=== PATIENT | female | born 1995 | race Caucasian/White ===

== ENCOUNTER → 2022-10-28 14:12 | Outpatient (CLI) | payer BC, SELFPAY ==
--- NOTE | 2022-10-28 | DI.US.S_ITS ---
PROCEDURE: US OB >= 14 WEEKS FETUS INDICATIONS: ANATOMY SCAN OUTSIDE/PRIOR DATING DATA: Last menstrual period (LMP): 05/22/2022. LMP-based estimated date of delivery (TWYLA): 02/26/2023. First dating scan (date and location): 10/28/2022, [facility]. Estimated date of delivery (TWYLA) from first dating scan: 02/27/2023. TECHNIQUE: Real-time scanning was performed of the fetus, with image documentation and biometric measurements. Endovaginal scanning: Not performed COMPARISON: None. FINDINGS: General: A single living intrauterine gestation is present. Presentation: Vertex. Placenta: Placental position is anterior , without previa. Amniotic fluid index: 18.3 cm, normal range is 5-24 cm. Single deepest vertical pocket is 6.5 cm. heart rate: 133 beats per minute. Maternal cervical canal: 5.5 cm long. Normal lower limit is 2.5 cm. biometrics: Biparietal diameter: 5.3 centimeters, 22 weeks 0 days Head circumference: 19.5 centimeters, 21 weeks 5 days Abdominal circumference: 19.2 centimeters, 23 weeks 6 days Femur length: 4.0 centimeters, 22 weeks 5 days estimated gestational age: 22 weeks 5 days Composite gestational age from present scan: 22 weeks 4 days Estimated weight and percentile: 570 grams, 67th percentile Anatomic survey: Neuro: Ventricles are non-dilated at less than 10 mm. Cisterna magna is normal at 3-11 mm. Cerebellum is normal in size and morphology. Nuchal skin fold: Normal at less than 6 mm between 14-21 weeks gestational age. Face: Nose and lips, facial profile are normal. Spine: No evidence for spina bifida. Heart: 4-chambered heart is present, with normal ventricular outflow tracts. Diaphragm: Diaphragm is intact. Stomach: Left-sided stomach is present. Kidneys: No hydronephrosis. Normal is less than 5 mm in 2nd trimester, less than 7 mm in 3rd trimester. Cord: 3-vessel cord has orthotopic insertion. Bladder: Normal in size. Extremities: All 4 extremities identified. IMPRESSION: 1. Single living intrauterine in vertex presentation. 2. Normal 2nd trimester anatomy survey. No anomalies detected at this time. We strive to produce accurate, complete, and clear reports of imaging services. To assist us in improving patient care, this report was composed using standard report templates and voice recognition software. Therefore, it may contain abnormal punctuation, insertions and/or omissions. Occasional wrong-word or sound-alike substitutions may occur. Though we review the report and make efforts to correct it, we do recommend that the report be read carefully in proper context to recognize any text inaccuracies. Dictated by: Danny Beckford M.D. on 10/28/2022 at 17:51 Approved by: Danny Beckford M.D. on 10/28/2022 at 17:57
== END ==
PROVIDERS: PCP Family Medicine; Referring Provider Advanced Practice Midwife; Visit Provider Advanced Practice Midwife
DX: Z34.92 Encounter for supervision of normal pregnancy, unspecified, second trimester (principal); Z3A.22 22 weeks gestation of pregnancy
CPT/HCPCS: 76811

== ENCOUNTER → 2022-11-08 09:53 | Outpatient (CLI) | payer BC, SELFPAY ==
[2022-11-08 11:27] LABS: Hematocrit 32.2 % (36-46); Mean Corpuscular HGB Conc 34.3 % (30-36); Mean Corpuscular Hemoglobin 31.5 PG (26-34); Mean Corpuscular Volume 92.1 fL (80-100); Platelet Count 189 X10^3/uL (150-400); Red Cell Distribution Width 13.5 % (11.6-14.8); White Blood Cell Count 11.3 X10^3/uL (4.5-11.0)
[2022-11-08 11:51] LABS: Glucose Fasting 75 mg/dL (70-100)
[2022-11-08 12:05] LABS: Glucose 1 Hour 106 mg/dL (70-170)
[2022-11-08 12:25] LABS: Glucose Tol Interpretation INTERPRETATION
[2022-11-08 14:10] LABS: Glucose 2 Hour 84 mg/dL (70-140)
== END ==
PROVIDERS: PCP Family Medicine; Referring Provider Advanced Practice Midwife; Visit Provider Advanced Practice Midwife
DX: Z34.90 Encounter for supervision of normal pregnancy, unspecified, unspecified trimester (principal); Z13.1 Encounter for screening for diabetes mellitus; Z3A.23 23 weeks gestation of pregnancy
CPT/HCPCS: 36415; 82951; 82952; 85027

== ENCOUNTER 2023-03-05 00:53 | Inpatient (IN) | payer OTHER, SELFPAY ==
--- NOTE | 2023-03-05 01:00 | P.HPOB_ITS ---
OB HPI Date/Time Date of admission: 03/05/23 Date Patient Seen: 03/05/23 Time Patient Seen: 01:01 History of Present Condition Chief complaint: LABOR : 2 Para: 0 Estimated Date of Delivery: 02/26/23 Narrative: Cheri Camp is a 27 year old female at 41w0d by sure LMP here for evaluation of labor. Has had good, uncomplicated care with CNMs. Contractions started this evening and steadily progressed in intensity and frequency. She arrived at the hospital breathing and moaning through contractions every two minutes. No vaginal bleeding and leaking of fluid with no concern for decreased movement. She is well supported by her mom and her at the bedside. Uncomplicated are with CNMs initiated at 15wks. Desires low intervention . Supported by partner, Kuldip, and her aunt. History of Present care: good care, initiated at week # (15), number of visits (11) and pounds weight gain (40) Dating criteria: LMP confirmed by 2nd trimester US Ultrasounds: normal mid trimester US Obstetrical complications: none Medical complications: none Preadmission Labs Blood type: A (+) positive -: Antibody screen: negative, Cystic fibrosis screen: negative, GBS status: negative, HBsAG: negative, HIV: negative and RPR/VDLR: negative -: Chlamydia screen: not detected and Gonorrhea screen: not detected -: Rubella: not immune and Varicella: immune HCT: 35.3 PAP: Normal Cell-free DNA: negative Narrative: 2hr gtt: 75, 106, 84 Prior (ies) History: SAB in 2016 - D&C Evaluation Evaluation Baseline heart rate: 145 Contraction Frequency (minutes): 2 Uterine Contraction Intensity: Strong/Firm Dilation (cm): 7 Effacement (%): 90 Dilation: >/=5 cm Effacement: >/=80% station: -2 Position of cervix: mid Consistency: soft Vega score: 10 Comments: FHTs reassuring by doppler [facility] Medical History (Updated 02/05/21 @ 21:42 by Codi Ferris) Eye abnormality Family history of due to heart problem at 50 years of age or younger Surgical History (Updated 02/05/21 @ 21:42 by Codi Ferris) Anesthesia History of dilatation and curettage (~2015) S/P lumpectomy, right breast (~2014) Family History (Updated 02/05/21 @ 21:42 by Codi Ferris) Father Crohn's disease Mother Heart murmur Social History Smoking Status: Never smoker Meds Home Medications and Allergies Allergies Allergy/AdvReac Type Severity Reaction Status Date / Time No Known Drug Allergies Allergy Verified 01/09/21 14:23 Review of Systems Review of Systems ROS: Yes All systems reviewed with the patient and are negative except as oth erwise documented OB Exam Vital signs Blood Pressure: 133/95 Pulse Rate: 105 Temperature: 36.4 F Resp Effort & Inspection: normal respiratory effort and able to speak in complete sentences Auscultation: clear to auscultation bilaterally Cardio Rate: regular rate Rhythm: regular rhythm Heart Sounds: S1 normal and S2 normal Presentation: vertex Objective Labs 03/05/23 01:15 Assessment and Plan Assessment and Plan Assessment and Plan narrative: A: Term nullipara Active labor elevated BP without diagnosis of hypertension Rubella NON-immune GBS prophylaxis NOT indicated FHTs reassuring by intermittent auscultation P: Admit for labor, routine admission orders Repeat BP within 1 hour, if elevated, will order preeclampsia panel Continuous labor support Intermittent auscultation Reviewed plan Expectant management of labor
[2023-03-05 01:38] LABS: Add Manual Diff / Slide Review NO; Basophils Absolute Auto 100 /uL (0-100); Basophils Percent Auto 0.4 % (0-2); Eosinophils Absolute Auto 0 /uL (0-450); Eosinophils Percent Auto 0.1 % (2-4); Hematocrit 38.7 % (36-46); Hemoglobin 13.1 g/dL (12.0-16.0); Lymphocytes Absolute Auto 1300 /uL (1100-4500); Lymphocytes Percent Auto 6.7 % (25-40); Mean Corpuscular HGB Conc 33.9 % (30-36); Mean Corpuscular Hemoglobin 30.3 PG (26-34); Mean Corpuscular Volume 89.4 fL (80-100); Monocytes Absolute Auto 1000 /uL (0-900); Monocytes Percent Auto 4.8 % (3-14); Neutrophils Absolute Auto 17300 /uL (1500-7000); Platelet Count 152 X10^3/uL (150-400); Red Blood Cell Count 4.33 X10^6/uL (4.0-5.2); Red Cell Distribution Width 12.9 % (11.6-14.8); White Blood Cell Count 19.7 X10^3/uL (4.5-11.0)
[2023-03-05] MEDS: ONDANSETRON 4 MG/2 ML INJ IV (01:48)
[2023-03-05 02:01] VITALS: BP 133/95; PULSE 105; TEMP 2.4; TEMP 36.4
[2023-03-05] MEDS: LACTATED RINGERS 1,000 ML 999 ML IV ×2 (02:40→03:32)
--- NOTE | 2023-03-05 03:00 | PM.AN.REGBLK ---
Regional Block Pre-procedure Procedure: Continuous Lumbar Epidural for L&D Attending OB provider: Alida Carmen PMH/ROS narrative: term labor, no complications, no significant PMH. ASA Class: II Labs: Hct 38.7 % (36-46) 03/05/23 01:15 Plt Count 152 X10^3/uL (150-400) 03/05/23 01:15 Medications: Current Medications Generic Name Dose Route Start Last Admin Trade Name Freq PRN Reason Stop Dose Admin Calcium Carbonate 1,000 mg 03/05/23 00:58 Calcium Carbonate 500 Mg Tab PO Q4HR PRN Dyspepsia Carboprost Tromethamine 250 mcg 03/05/23 00:58 Carboprost 250 Mcg/Ml Ampul IM Q90M PRN Bleeding Fentanyl 100 mcg 03/05/23 00:58 Fentanyl 100 Mcg/2 Ml Inj IV Q1H PRN Pain, Severe (7-10) Oxytocin/Lactated Ringer's 30 unit in 500 mls @ 200 mls/hr 03/05/23 00:58 Oxytocin Premix IV CONT PRN Bleeding Protocol Tranexamic Acid 1,000 mg/ 100 mls @ 200 mls/hr 03/05/23 00:58 Sodium Chloride IV NOW PRN Bleeding Lactated Ringer's 1,000 mls @ 100 mls/hr 03/05/23 01:00 03/05/23 02:40 Lactated Ringers IV 999 mls/hr CONT JEREMIAS Administration Lidocaine HCl 20 ml 03/05/23 00:58 Lidocaine 1% 20 Ml INJ INTRA-OP PRN Post Delivery Methylergonovine Maleate 0.2 mg 03/05/23 00:58 Methylergonovine 0.2 Mg Tablet PO Q6HR PRN Heavy Bleeding Methylergonovine Maleate 0.2 mg 03/05/23 00:58 Methylergonovine 0.2 Mg/Ml Vial IM NOW PRN Bleeding Misoprostol 800 mcg 03/05/23 00:58 Misoprostol 200 Mcg Tablet NE NOW PRN Bleeding Misoprostol 400 mcg 03/05/23 00:58 Misoprostol 200 Mcg Tablet SL NOW PRN Bleeding Naloxone HCl 0.2 mg 03/05/23 00:58 Naloxone 0.4 Mg/Ml Vial IV Q2MIN PRN Opiate Reversal Ondansetron HCl 4 mg 03/05/23 00:58 03/05/23 01:48 Ondansetron 4 Mg/2 Ml Inj IV 4 mg Q4HR PRN Administration Nausea And Vomiting Oxytocin 10 unit 03/05/23 00:58 Oxytocin 10 Unit/Ml Vial IM NOW PRN Bleeding Allergies: Allergies Allergy/AdvReac Type Severity Reaction Status Date / Time No Known Drug Allergies Allergy Verified 01/09/21 14:23 Procedure Insertion date: 03/05/23 Insertion time: 03:10 Prep/Local: betadine x3 and 1% lidocaine Interspace: L3-4 Patient position: sitting Needle: 18 gauge [employer] (CSE: 27g Pencan through [employer], clear CSF, 2.5mg MPF bupiv) Loss of resistance with: saline ROSELINE at (cm): 4 Catheter placed at SKIN (cm): 10 Catheter in SPACE (cm): 6 Insertion: No CSF, No Blood, No Paresthesia with insertion, No Paresthesia with injection and No Test dose reaction Initial Medications TEST DOSE time: 03:13 TEST DOSE: 1.5% lidocaine with epinephrine 1:200k (mL): 3 BOLUS DOSE time: 03:14 BOLUS DOSE (mL): 4 BOLUS DOSE med: other (lidocaine 1%) Infusion INFUSION: 0.125% bupivacaine and with fentanyl 2 mcg/mL Initial rate (mL/hr): 8 Subsequent interventions: PCEA at 8mL/h+4 bolus q15m prn VSS throughout placement. 11:15 6mL 2-chloroprocaine, pushing. Post-procedure Anesthesia time START: 03:05 Anesthesia time END: 11:18 Post-procedure Anesthesia Assessment: Yes CV function: HR/BP stable, Yes Resp function: RR/sat/airway adequate, Yes Post-op hydration adequate, Yes Pain control adequate, Yes Nausea & vomiting absent, Yes Temperature > 36 C, Yes Mental status appropriate and No Anesthesia complications
[2023-03-05] MEDS: FENT 2MCG/ML BUPIV 0.125% EPI 200 MCG/100 ML PLAST..BAG 6 MCG EPIDURAL ×2 (03:26→10:30)
--- NOTE | 2023-03-05 04:05 | PM.OBPNLAB ---
Date/Time Date Patient Seen: 03/05/23 Time Patient Seen: 03:45 Pain Control Pain control: epidural Comments: Patient requested nitrous oxide for pain relief. After utilizing NO2, the patient requested an epidural for more adequate pain relief. Edpidural was placed, patient is now completely comfortable, rating contraction pain 0/10. R:18/min BP:110/55 MAP: 79 P: 114bpm SpO2: 98% Temp: 36.4* Pelvic Exam Dilation (cm): 8 Effacement (%): 90 station: -2 Amniotic membrane status: Bulging Contractions Date/Time contractions began: 03/04/23 - early evening contractions began Contractions on admission: regular Contraction frequency (min): 2 Contraction duration (min): 1 Contraction pattern: Regular Contraction intensity: Strong/Firm Status status: Category l Heart Rate Baseline: 125 Monitor Accelerations: Present Monitor Decelerations: Variable Monitor Variability: Moderate Assessment and Plan Assessment: active labor Plan: continuous present management Comments: A: Term nulliparous Pain well managed with epidural Elevated WBC count without other signs of infection Cat I FHR P: Encourage rest Frequent position changes Watch for signs and symptoms of infection Anticipate continued progress of labor and NSVB Reassess in 4 hours or sooner if indicated
[2023-03-05 07:00] VITALS: BP 114/57; PULSE 66; RESP 16; TEMP 36.9
--- NOTE | 2023-03-05 07:58 | PM.OBPNLAB ---
Date/Time Date Patient Seen: 03/05/23 Time Patient Seen: 07:40 Pain Control Pain control: epidural Comments: Has been able to sleep comfortably for past 4 hours. Denies pressure. Some bloody show and possible leaking of fluid at last position change. BP: 99/54 MAP: 72 P: 76bpm SpO2: 95% RR: 16/min Temp: 35.7C Pelvic Exam Dilation (cm): 10 Effacement (%): 100 station: 0 Amniotic membrane status: Ruptured Comments: Blood show and clear fluid noted Contractions Contractions on admission: regular Monitor mode: External Contraction frequency (min): 4 Contraction duration (min): 2 Contraction pattern: Regular Contraction intensity: Strong/Firm Status status: Category l Heart Rate Baseline: 125 Monitor Accelerations: Present Monitor Decelerations: Absent Monitor Variability: Moderate Assessment and Plan Assessment: active labor Plan: continuous present management Comments: A: Term nulliparous Active labor Pain well managed with epidural SROM x<4hrs without signs of infection Cat I FHR P: Encouraged laboring down for one hour Reassess in one hour or sooner as indicated Anticipate second stage of labor soon
--- NOTE | 2023-03-05 11:52 | PM.OBPRVD ---
Labor & Delivery Delivery date: 03/05/23 Intrapartal Events: Extended Tachycardia, Acceleration and Deceleration Cervical ripening method: none Induction method: none Delivery monitor: external FHT and external uterine Route of delivery: L&D Laceration Description: Vaginal - 1st Degree Quantitative Blood Loss: 50 Anesthesia Type: Epidural Narrative: Cheri is a G2 now P1011 s/p NSVB at 41w0d. Second stage started at 0850 with good maternal effort and adequate pain relief with epidural, Cat I FHR. After one hour with multiple position changes, FHR was Cat II with tachycardia. SROM of clear fluid. Good progress was made, she coped well with support from , aunt, RN, CNM, and SNM. The epidural started to loose effectiveness and Cheri was able to feel her contractions as well as pain with decent, pushing became less effective. RT was alerted to attend the . Anesthesia was called to assess epidural effectiveness and give additional medication bolus. With pushing support and coaching Cheri delivered a vigorous baby girl SHAHRZAD, somersaulted through a loose nuchal cord, immediately placed on maternal abdomen for skin to skin and drying, APGARS 8/9. CNM, SNM and father hands on a , father lifted baby to maternal abdomen. Copious amounts of terminal meconium. RT support was not needed. Active management of the third stage of labor with pitocin per protocol. Cord was cut and clamped by FOB once cessation of pulsations. Assessed 1st degree vaginal laceration, hemostatically stable and well approximated with no indication for repair. Placenta was delivered Schultze, apparently intact, 3VC. Fundus immediately firm, at U. QBL 50mL. Cheri and her baby were stable, skin to skin with initiated, as we left the room. [place] Baby 1: Infant gender: Female Presentation: vertex Position: Right Occiput Anterior Placenta delivery description: Spontaneous Cord Vessel Description: 3 Vessels, Nuchal Cord and Loose score (1 min): 8 score (5 min): 9 weight: 4.735 kg Plan for aftercare: Routine care
[2023-03-05] MEDS: KETOROLAC 30 MG/ML VIAL IV (13:13)
[2023-03-05] MEDS: ACETAMINOPHEN 325 MG TABLET 650 MG PO ×2 (13:14→21:15)
[2023-03-05] MEDS: DERMOPLAST SPRAY 20% 60 ML 1 SPRAY TOP (13:14)
[2023-03-05] MEDS: IBUPROFEN 600 MG TABLET PO (21:14)
[2023-03-06] MEDS: ACETAMINOPHEN 325 MG TABLET 650 MG PO ×2 (04:25→10:24)
[2023-03-06] MEDS: IBUPROFEN 600 MG TABLET PO ×2 (04:25→10:26)
--- NOTE | 2023-03-06 08:35 | P.DS_ITS ---
Discharge Providers Provider Date of admission: 03/05/23 00:53 Discharge Date: 03/06/23 Primary care physician: Thompson Kimball DO Consults: 03/06/23 11:43 Consult to Supervisor [facility] Routine Comment: Discharge provider: Alida Carmen CNM Summary Hospital Course Date Patient Seen: 03/06/23 Time Patient Seen: 08:35 Diagnoses: O70.0 Hospital Course: PPD1: Stable s/p NSVB with 1st degree vaginal laceration. Voiding, ambulating and independently. Tolerating a general diet. Pain is well controlled with PO medication. Vaginal bleeding is moderate to small. Vulvar edema is decreased, but still present. Feeling ready for discharge to [facility] today. Peripartum Data Delivery Method: Natural Vaginal Laceration Description: Vaginal - 1st Degree Episiotomy description: None Procedures: O70.0 1: Gender: Female Disposition of : home Discharge Diagnosis (1) First degree perineal laceration during delivery: Status: Acute Status at Discharge Cognitive/behavioral status at discharge: oriented and calm Functional status at discharge: independent ambulation Overall status at discharge: patient is progressing back to baseline Time Spent with Patient Time attestation: Total time spent providing and/or coordinating discharge services: Objective Labs 03/05/23 01:15 Exam Vital Signs (past 8 hours): BP 101/54, HR 62, T 96.6F Temporal Other: Fundus firm @ u-1, lochia small, vulvar edema improved, perineum intatc Discharge Plan Discharge Plan Patient Disposition: Home Discharge orders & Medications Prescriptions: New ibuprofen 600 mg Tablet 600 mg PO Q6HR PRN (Reason: Pain, Mild (1-3)) 14 Days Qty: 60 0RF No Action No Known Home Medications Follow up/Referrals: Thompson Kimball DO [Primary Care Provider] - Alida Carmen CNM [[employer] Sales Representative] - (follow up in 2 weeks and 6 weeks , as scheduled.) Diet/Activity/Treatments Diet: Diet as Tolerated and Regular Activity: pelvic rest x 6 weeks Skin/Wound/Dressing Care Report to your healthcare provider any signs of infection, such as:: chills, fever, increased pain, unusual drainage and unusual redness Visit Report/Discharge Packet Instructions: DI for Depression Stand Alone Forms: Patient Portal/API Discharge Data Primary Care Provider: Thompson Kimball
[2023-03-06] MEDS: DOCUSATE 100 MG CAPSULE PO (10:26)
[2023-03-06] MEDS: MEASLES,MUMPS,RUBELLA VACC/PF 0.5 ML VIAL SUBCUT (11:11)
== END 2023-03-06 11:30 | disposition home or self-care (01) | DRG 807 ==
PROVIDERS: Admitting Provider Nurse Practitioner Obstetrics & Gynecology; PCP Family Medicine; Referring Provider Nurse Practitioner Obstetrics & Gynecology; Visit Provider Nurse Practitioner Obstetrics & Gynecology
DX: O48.0 Post-term pregnancy (principal); Z37.0 Single live birth; Z3A.41 41 weeks gestation of pregnancy; O76 Abnormality in fetal heart rate and rhythm complicating labor and delivery
CPT/HCPCS: 36415; 59050; 85025; 86850; 86900; 86901; G0379; J1885; J2405

== ENCOUNTER → 2024-07-06 14:45 | Outpatient (CLI) | payer OTHER, SELFPAY ==
[2024-07-07 08:11] LABS: Varicella IgG Antibody Reactive (Non Reactive)
== END ==
PROVIDERS: Family Provider Family Medicine; PCP Family Medicine; Referring Provider Family Medicine; Visit Provider Family Medicine
DX: Z71.85 Encounter for immunization safety counseling (principal)
CPT/HCPCS: 36415; 86658; 86787

== ENCOUNTER 2024-09-13 07:30 | Outpatient (RCR) | payer OTHER, SELFPAY ==
--- NOTE | 2024-07-30 18:44 | PT.OIE ---
Current Diagnoses Stress incontinence (female) (male) (07/30/24) Past Medical History (Last Updated 07/06/24 @ 14:23 by Thompson Kimball DO) Eye abnormality Family history of due to heart problem at 50 years of age or younger Immunization counseling Past Surgical History (Last Updated 02/05/21 @ 21:42 by Codi Ferris) Anesthesia History of dilatation and curettage (~2015) S/P lumpectomy, right breast (~2014) Visit Care Team Role Provider Type Thompson Kimball DO Family Provider Physician Primary Care Provider Specialty: Family Practice Address: [address] [place] [address], [id number] Email: Starla Marques DO Attending Provider Physician Referring Provider Specialty: DOCK SUPERINTENDENT Address: [address] [place] [address], [address], [address] Email: [email or web address] Physical Therapy Initial Evaluation PT-OP-A Visit Information Start: 07/20/24 18:11 Freq: Status: Active Protocol: Document 07/30/24 07:32 LRN (Rec: 07/30/24 08:14 LRN [id number]) Out-Patient Physical Therapy Visit Information Visit Information Visit Type Initial Evaluation Visit Start Time 07:32 Visit Stop Time 08:13 Visit Number 1 Evaluation Information Evaluation Date 07/30/24 Precautions Precautions 18 month post of vaginal , PT-OP-B Current Condition Start: 07/20/24 18:11 Freq: Status: Active Protocol: Document 07/30/24 07:32 LRN (Rec: 07/30/24 08:14 LRN [id number]) Current Condition History of Current Condition Onset Date 6 months ago Current Complaints Leaks with sneeze, cough, and exercise, and lift exercise. History of Current Condition Pt is 18 month post ( stopped 9 months ago), who initially had no urinary incontinence with jogging, sneezing, coughing). She had resumed close to her previous workout of 5x/week exercising in a gym (run or intense [employer] workout) when she returned to work. She began to notice a little leakage at a time, then 2 months ago was running and had lost complete urinary continence, only recognizing loss of urine when she felt it running down her leg. She states her birthing history was without difficulty with only small tearing, not requiring stitches. Pt is 1G1P, baby weighing 10#. Pt denies currently being . She is considering another child, but wanting to wait because she wants to get into nursing school. Records indicate IUD placed 6 wk pp, and she has occasional dyspareunia since of child. Prior Treatments and Tests None Treatment Goals Patient/Caregiver Goals Pt goal: - not leak with coughing, sneezing, lifting in gym. - wants to run without urinary leakage or loss of bladder control. - pt agreeable to being on a HEP. Prior Functional Status Baseline Function- Other Without leakage, worked out at [email or web address] for floor workouts , and light jog or run, then machine wgt lifting and stretching. 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 Therapy/Recovery IUD since 6 wks post-, Pt may begin process towards nursing school. PT-OP-C Subjective Start: 07/20/24 18:11 Freq: Status: Active Protocol: Document 07/30/24 07:32 LRN (Rec: 08/01/24 16:57 LRN [id number]) Patient Questionnaires Pelvic Pain and Urgency/Frequency Patient Symptom Scale Pelvic Pain Score 3 PT-OP-I Pelvic Floor Start: 07/20/24 18:11 Freq: Status: Active Protocol: Document 07/30/24 07:32 LRN (Rec: 07/30/24 08:14 LRN [id number]) Pelvic Floor Assessment Pelvic Clock Pelvic Clock Other Excessive tissue palpated at Pelvic Clock 5-7, probable mild rectocele. Vaginal gapping. Prolapse Cystocele Grade 1 Perineal Descent Resting Absent Bearing Present Contraction Ability Manual Muscle Testing Left 2 Manual Muscle Testing Right 3 Manual Muscle Testing Anterior 2 Manual Muscle Testing Posterior 3 Muscle Endurance (Seconds) 2 Number of Quick Contractions In 10 6 Seconds PT-OP-J Posture/Palpation/Skin Start: 07/20/24 18:11 Freq: Status: Active Protocol: Document 07/30/24 07:32 LRN (Rec: 07/30/24 08:14 LRN [id number]) Posture Evaluation Position Standing L-Spine Posture Increased Lordosis Shoulder Posture (L) Elevated Pelvis Posture Anteriorly Tilted Knee Posture (L) Genu Valgus,(R) Genu Valgus Ankle/Foot Posture (L) Pronated,(R) Pronated Comments Posture Comments Decreased T/S upper curve, L buttock curve is low. PT-OP-K Range of Motion Start: 07/20/24 18:11 Freq: Status: Active Protocol: Document 07/30/24 07:32 LRN (Rec: 07/30/24 08:14 LRN [id number]) Lumbar Spine Range of Motion Lumbar Spine Active Degrees Testing Position Standing Flexion 110 Extension 25 Rotation Left 20 Rotation Right 25 Lateral Flexion Left 20 Lateral Flexion Right 30 Hip Goniometric Range of Motion Hip Right Passive Testing Position Supine Internal Rotation 45 External Rotation 65 Left Passive Testing Position Supine Internal Rotation 35 External Rotation 60 PT-OP-M Strength Start: 07/20/24 18:11 Freq: Status: Active Protocol: Document 07/30/24 07:32 LRN (Rec: 07/30/24 08:14 LRN [id number]) Trunk Strength Trunk Manual Muscle Testing Core Stabilization Decreased rotational stability with strength 4+/5 Hip Strength Hip Manual Muscle Testing Right External Rotation 4+ Good+ Comments Strength is generally 5/5 except as indicated above. Left External Rotation 3 Fair Internal Rotation 4+ Good+ Comments Strength is generally 5/5 except as indicated above. PT-OP-Q Treatments Start: 07/20/24 18:11 Freq: Status: Active Protocol: Document 07/30/24 07:32 LRN (Rec: 07/30/24 08:14 LRN [id number]) Self-Care/Home Management Treatment Education Other Education Discussed results of evaluation, goals, treatment, and plan of care (POC) with pt , discussed attendance/cx/dns policy; pt agreeable to evaluation, goals, treatment, attendance/cx/dns policy and POC. Discussed and educated pt in specifics for completion of in use of Bladder Diary and I/S in tracking for 1 week. Educated pt in urge deference technique for controlling leakage with an urge. Activities Self-Care/Home Management Activities Issued & reviewed HEP: Phuong ex's and discussed exercise of Quick Flicks, Long Holds and Aggravators. PT-OP-T Assessment and Plan Start: 07/20/24 18:11 Freq: Status: Active Protocol: Document 07/30/24 07:32 LRN (Rec: 07/30/24 08:14 LRN [id number]) Physical Therapy Assessment Rehab Potential Rehabilitation Potential Good Evaluation Complexity Number of Personal Factors/Comorbidities 1-2 Impairments Impairments Activity Tolerance,Posture,ROM ,Soft Tissue Mobility,Strength ,Transfers Goals Three Impairment Stress Urinary Leakage with cough, sneeze, lifting at gym Short Term Goal (STG) Pt will be able to perform a PF contraction in the absence of abdominal/gluteal muscles and hold for 10 secs. STG Duration 09/10/24 Fdc Goal (LTG) Improve PF strength with pt able to coughing, sneezing, and lift in gym without leaking. LTG Duration 10/22/24 Two Impairment Pt has urinary incontinence with light jog (previously pp had no leakage) Short Term Goal (STG) Strengthen PF with pt able to run without urinary leakage or loss of bladder control for intermittent short light jogs between walking. STG Duration 09/10/24 Fdc Goal (LTG) Improve PF strength with pt be able to confidently light jog 1 mile with less fear of urinary leakage for improved social engagement. LTG Duration 10/22/24 One Impairment Pt lacks an independent self care HEP. Short Term Goal (STG) Pt will be educated and able to demonstrate transfers to lessen core abdominal pressure . STG Duration 08/13/24 Fruit Canner Goal (LTG) Pt will be independent in a self care HEP for PF strengthening. LTG Duration 10/22/24 Assessment Summary Assessment Pt is a 28 yo female who is 18 months presenting with stress urinary incontinence due to PF weakness after returning to 5x /week of gym exercises of light running and workouts at the local [employer] when she returned to work. Initially she only leaked with coughing or sneezing, but now she leaks mainly with light running and an urge and occasional with sneeze, cough, lifting of weights at the gym. She has decreased L hip & trunk L rot mobility and mild decrease in trunk & hip strength. She is not able to perform an isolated PF contraction, enagaging substitute muscles to get a contraction. The pt will benefit from skilled physical therapy to improve her PF strength and normalize hip/trunk mobility and strength and for pt education in proper genital care and coordination of breath with transfers and ADS, and for placement on a HEP. The pt is expected to do well, but if she does start school, it may hinder her progress if she is not able to stay consistent with her home exercise. Physical Therapy Plan Frequency and Duration Frequency of Treatment 1x/Week Duration of treatment (weeks) 12 Plan of Care Start Date 07/30/24 Plan of Care End Date 10/22/24 Therapeutic Interventions Therapeutic Interventions Home Exercise Program,Joint Mobilizations,Manual Therapy, Neuromuscular Re-education, Self-Care/Home Management,Soft Tissue Mobilization, Therapeutic Activities, Therapeutic Exercises Next Visit Focus/Plan Next Note Type Treatment Note Next Visit Plan Assess if IUD in place, assess DR & if no IUD, bladder. Review Bladder dairy and discussed fluid intake (AM/PM) , times between voids, norms for voids/day and urination times, and nighttime voiding frequency; pt education in urge deference technique and bladder retraining if needed. Kegel on wedge without use of substitute muscles, deep breathing, core pressure management, and proper coordinated breathing with transfers and body mechanics. Ther Ex: PF/hip (L>R ER, L IR ) and trunk L rot strengthening, L hip (IR/ slight ER) & trunk L rot mobility. STM of abdomen (and urachus) & bladder mobility, POC: Pt education, Manual therapy, Therapeutic Exercises , Therapeutic Activities, Neuromuscular Reeducation, biofeedback, HEP.
--- NOTE | 2024-07-30 18:45 | PT.OPPOC ---
Physical, Occupational & Speech Therapy At [facility] Current Diagnoses Stress incontinence (female) (male) (07/30/24) Visit Care Team Role Provider Type Thompson Kimball DO Family Provider Physician Primary Care Provider Specialty: Family Practice Address: [address] [place] [address], [id number] Email: Starla Marques DO Attending Provider Physician Referring Provider Specialty: OBGYN HOSPITALIST PHYSICIAN Address: [address] [place] [address], [address], [place], [address] Email: [email or web address] Plan Of Care PT-OP-B Current Condition Start: 07/20/24 18:11 Freq: Status: Active Protocol: Document 07/30/24 07:32 LRN (Rec: 07/30/24 08:14 LRN [id number]) Current Condition History of Current Condition Onset Date 6 months ago Current Complaints Leaks with sneeze, cough, and exercise, and lift exercise. History of Current Condition Pt is 18 month post ( stopped 9 months ago), who initially had no urinary incontinence with jogging, sneezing, coughing). She had resumed close to her previous workout of 5x/week exercising in a gym (run or intense stairmaster workout) when she returned to work. She began to notice a little leakage at a time, then 2 months ago was running and had lost complete urinary continence, only recognizing loss of urine when she felt it running down her leg. She states her birthing history was without difficulty with only small tearing, not requiring stitches. Pt is 1G1P, baby weighing 10#. Pt denies currently being . She is considering another child, but wanting to wait because she wants to get into nursing school. Records indicate IUD placed 6 wk pp, and she has occasional dyspareunia since of child. Prior Treatments and Tests None Treatment Goals Patient/Caregiver Goals Pt goal: - not leak with coughing, sneezing, lifting in gym. - wants to run without urinary leakage or loss of bladder control. - pt agreeable to being on a HEP. Prior Functional Status Baseline Function- Other Without leakage, [facility] [employer] [employer] for [facility] workouts , and light jog or run, then machine wgt lifting and stretching. 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 Therapy/Recovery IUD since 6 wks post-, Pt may begin process towards nursing school. PT-OP-T Assessment and Plan Start: 07/20/24 18:11 Freq: Status: Active Protocol: Document 07/30/24 07:32 LRN (Rec: 07/30/24 08:14 LRN [id number]) Physical Therapy Assessment Rehab Potential Rehabilitation Potential Good Evaluation Complexity Number of Personal Factors/Comorbidities 1-2 Impairments Impairments Activity Tolerance,Posture,ROM ,Soft Tissue Mobility,Strength ,Transfers Goals Three Impairment Stress Urinary Leakage with cough, sneeze, lifting at gym Short Term Goal (STG) Pt will be able to perform a PF contraction in the absence of abdominal/gluteal muscles and hold for 10 secs. STG Duration 09/10/24 Microsoft Access Developer Goal (LTG) Improve PF strength with pt able to coughing, sneezing, and lift in gym without leaking. LTG Duration 10/22/24 Two Impairment Pt has urinary incontinence with light jog (previously pp had no leakage) Short Term Goal (STG) Strengthen PF with pt able to run without urinary leakage or loss of bladder control for intermittent short light jogs between walking. STG Duration 09/10/24 Microsoft Access Developer Goal (LTG) Improve PF strength with pt be able to confidently light jog 1 mile with less fear of urinary leakage for improved social engagement. LTG Duration 10/22/24 One Impairment Pt lacks an independent self care HEP. Short Term Goal (STG) Pt will be educated and able to demonstrate transfers to lessen core abdominal pressure . STG Duration 08/13/24 Nursing Home Goal (LTG) Pt will be independent in a self care HEP for PF strengthening. LTG Duration 10/22/24 Assessment Summary Assessment Pt is a 28 yo female who is 18 months presenting with stress urinary incontinence due to PF weakness after returning to 5x /week of gym exercises of light running and workouts at the local [employer] when she returned to work. Initially she only leaked with coughing or sneezing, but now she leaks mainly with light running and an urge and occasional with sneeze, cough, lifting of weights at the gym. She has decreased L hip & trunk L rot mobility and mild decrease in trunk & hip strength. She is not able to perform an isolated PF contraction, enagaging substitute muscles to get a contraction. The pt will benefit from skilled physical therapy to improve her PF strength and normalize hip/trunk mobility and strength and for pt education in proper genital care and coordination of breath with transfers and ADS, and for placement on a HEP. The pt is expected to do well, but if she does start school, it may hinder her progress if she is not able to stay consistent with her home exercise. Physical Therapy Plan Frequency and Duration Frequency of Treatment 1x/Week Duration of treatment (weeks) 12 Plan of Care Start Date 07/30/24 Plan of Care End Date 10/22/24 Therapeutic Interventions Therapeutic Interventions Home Exercise Program,Joint Mobilizations,Manual Therapy, Neuromuscular Re-education, Self-Care/Home Management,Soft Tissue Mobilization, Therapeutic Activities, Therapeutic Exercises Next Visit Focus/Plan Next Note Type Treatment Note Next Visit Plan Assess if IUD in place, assess DR & if no IUD, bladder. Review Bladder dairy and discussed fluid intake (AM/PM) , times between voids, norms for voids/day and urination times, and nighttime voiding frequency; pt education in urge deference technique and bladder retraining if needed. Kegel on wedge without use of substitute muscles, deep breathing, core pressure management, and proper coordinated breathing with transfers and body mechanics. Ther Ex: PF/hip (L>R ER, L IR ) and trunk L rot strengthening, L hip (IR/ slight ER) & trunk L rot mobility. STM of abdomen (and urachus) & bladder mobility, POC: Pt education, Manual therapy, Therapeutic Exercises , Therapeutic Activities, Neuromuscular Reeducation, biofeedback, HEP. Plan of Care Dates Plan of Care Start Date 07/30/24 Plan of Care End Date 10/22/24 Electronically Signed by: Ileana Shaikh, PT 08/02/24 [id number] If you are in agreement with this Plan of Care, please return a signed and dated copy. I have reviewed this Plan of Care and certify that the skilled therapy services above are required to meet the patient?s needs. Physician Signature Date Printed Name and Credentials Clinical Instructor Signature Printed Name and Credentials
--- NOTE | 2024-08-06 15:33 | PT.OTN ---
Current Diagnoses Stress incontinence (female) (male) (08/06/24) Physical Therapy Treatment Note PT-OP-A Visit Information Start: 07/20/24 18:11 Freq: Status: Active Protocol: Document 08/06/24 07:33 LRN (Rec: 08/06/24 08:19 LRN [id number]) Out-Patient Physical Therapy Visit Information Visit Information Visit Type Initial Evaluation Visit Start Time 07:33 Visit Stop Time 08:11 Visit Number 1 Evaluation Information Evaluation Date 07/30/24 Precautions Precautions 18 month post of vaginal , PT-OP-B Current Condition Start: 07/20/24 18:11 Freq: Status: Active Protocol: Document 07/30/24 07:32 LRN (Rec: 07/30/24 08:14 LRN [id number]) Current Condition History of Current Condition Onset Date 6 months ago Current Complaints Leaks with sneeze, cough, and exercise, and lift exercise. History of Current Condition Pt is 18 month post ( stopped 9 months ago), who initially had no urinary incontinence with jogging, sneezing, coughing). She had resumed close to her previous workout of 5x/week exercising in a gym (run or intense [employer] workout) when she returned to work. She began to notice a little leakage at a time, then 2 months ago was running and had lost complete urinary continence, only recognizing loss of urine when she felt it running down her leg. She states her birthing history was without difficulty with only small tearing, not requiring stitches. Pt is 1G1P, baby weighing 10#. Pt denies currently being . She is considering another child, but wanting to wait because she wants to get into nursing school. Records indicate IUD placed 6 wk pp, and she has occasional dyspareunia since of child. Prior Treatments and Tests None Treatment Goals Patient/Caregiver Goals Pt goal: - not leak with coughing, sneezing, lifting in gym. - wants to run without urinary leakage or loss of bladder control. - pt agreeable to being on a HEP. Prior Functional Status Baseline Function- Other Without leakage, worked out at [employer] for floor workouts , and light jog or run, then machine wgt lifting and stretching. 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 Therapy/Recovery IUD since 6 wks post-, Pt may begin process towards nursing school. PT-OP-C Subjective Start: 07/20/24 18:11 Freq: Status: Active Protocol: Document 08/06/24 07:33 LRN (Rec: 08/06/24 08:19 LRN [id number]) OP-PT Subjective Patient Comments Patient Comments Has questions regarding [employer] for PF strengthening and her standing with ankles IV'd might have affect on PF. PT-OP-I Pelvic Floor Start: 07/20/24 18:11 Freq: Status: Active Protocol: Document 08/06/24 07:33 LRN (Rec: 08/06/24 08:19 LRN [id number]) Pelvic Floor Assessment SEMG (uV) Baseline 3.0 Quick Contraction 6.1 10 Second Contraction 5.8 Recruitment Pattern Good Relaxation Fair Holding Fair Stability of Hold Poor/Slow SEMG Stability of Rest Fair Comments Pelvic Floor Comments Positioning: Arms by sides, hands on lower abdomen, Legs on bolster. Quick Flicks: 10 reps strength (uV's): avg work 6.1, avg rest 3.3. 20 reps strength (uV's): avg work 6.3, avg rest 3.1. Long Holds: 10 reps strength (uV's): avg work 5,8, avg rest 2.9. 20 rep s strength (uV's): avg work , avg rest . RESTING: Takes 2 secs or more to get to resting tone. PT-OP-J Posture/Palpation/Skin Start: 07/20/24 18:11 Freq: Status: Active Protocol: Document 07/30/24 07:32 LRN (Rec: 07/30/24 08:14 LRN [id number]) Posture Evaluation Position Standing L-Spine Posture Increased Lordosis Shoulder Posture (L) Elevated Pelvis Posture Anteriorly Tilted Knee Posture (L) Genu Valgus,(R) Genu Valgus Ankle/Foot Posture (L) Pronated,(R) Pronated Comments Posture Comments Decreased T/S upper curve, L buttock curve is low. PT-OP-K Range of Motion Start: 07/20/24 18:11 Freq: Status: Active Protocol: Document 07/30/24 07:32 LRN (Rec: 07/30/24 08:14 LRN [id number]) Lumbar Spine Range of Motion Lumbar Spine Active Degrees Testing Position Standing Flexion 110 Extension 25 Rotation Left 20 Rotation Right 25 Lateral Flexion Left 20 Lateral Flexion Right 30 Hip Goniometric Range of Motion Hip Right Passive Testing Position Supine Internal Rotation 45 External Rotation 65 Left Passive Testing Position Supine Internal Rotation 35 External Rotation 60 PT-OP-M Strength Start: 07/20/24 18:11 Freq: Status: Active Protocol: Document 07/30/24 07:32 LRN (Rec: 07/30/24 08:14 LRN [id number]) Trunk Strength Trunk Manual Muscle Testing Core Stabilization Decreased rotational stability with strength 4+/5 Hip Strength Hip Manual Muscle Testing Right External Rotation 4+ Good+ Comments Strength is generally 5/5 except as indicated above. Left External Rotation 3 Fair Internal Rotation 4+ Good+ Comments Strength is generally 5/5 except as indicated above. PT-OP-Q Treatments Start: 07/20/24 18:11 Freq: Status: Active Protocol: Document 08/06/24 07:33 LRN (Rec: 08/06/24 08:19 LRN [id number]) Therapeutic Exercises Supine Exercises Long Hold PF strengthening Equipment Used Bolster, V. electrode Reps/Minutes 10 SH/10 SR x 20 Comments Extra needed for training. See PF assessment above. Quick PF strengthening Equipment Used Bolster, V. electrode Reps/Minutes 2 SH/4 SR x 20 Comments Extra needed for training. See PF assessment above. Resting PF Equipment Used Bolster, V. electrode Reps/Minutes 3' Comments Pt cued for relaxation of PF w /o talk,and mvmt. See PF assess above. Self-Care/Home Management Treatment Education Other Education Discussed and educated pt on how posture might affect back that may lead to connection to PF, but with ankle IV, not likely. Discussed and educated pt in use of [employer] for PF strengthening that would be beneficial if standing over supine. PT-OP-T Assessment and Plan Start: 07/20/24 18:11 Freq: Status: Active Protocol: Document 08/06/24 07:33 LRN (Rec: 08/06/24 08:19 LRN [id number]) Physical Therapy Assessment Goals Three Impairment Stress Urinary Leakage with cough, sneeze, lifting at gym Short Term Goal (STG) Pt will be able to perform a PF contraction in the absence of abdominal/gluteal muscles and hold for 10 secs. STG Duration 09/10/24 Fdc Goal (LTG) Improve PF strength with pt able to coughing, sneezing, and lift in gym without leaking. LTG Duration 10/22/24 Two Impairment Pt has urinary incontinence with light jog (previously pp had no leakage) Short Term Goal (STG) Strengthen PF with pt able to run without urinary leakage or loss of bladder control for intermittent short light jogs between walking. STG Duration 09/10/24 Fdc Goal (LTG) Improve PF strength with pt be able to confidently light jog 1 mile with less fear of urinary leakage for improved social engagement. LTG Duration 10/22/24 One Impairment Pt lacks an independent self care HEP. Short Term Goal (STG) Pt will be educated and able to demonstrate transfers to lessen core abdominal pressure . STG Duration 08/13/24 Metalizer Goal (LTG) Pt will be independent in a self care HEP for PF strengthening. (late entry) 07/30/24: HEP: Kegel ex's and discussed exercise of Quick Flicks, Long Holds and Aggravators. LTG Duration 10/22/24 progressed on 07/30 Assessment Summary Assessment Pt forgot her bladder diary today. No DR noted on palpation. Per discussion, IUD is felt by spouse with intercourse, but not her. Per Biofeedback, PF has normal resting tone of 3.0. Quick contraction strength is fair ( avg is 6.1uV - 10 reps), resting is avg fair (3.3 uVs- 10 reps), taking time to achieve resting tone. Long Hold contraction strength is fair (avg is 5.8 - 10 reps), but she is slow to resting tone and fatigues over time as indicated by a lower resting tone after 20 reps. Pt noted feeling IUD w/VEMG electrode upon standing after therapy exercise. Physical Therapy Plan Frequency and Duration Frequency of Treatment 1x/Week Duration of treatment (weeks) 12 Plan of Care Start Date 07/30/24 Plan of Care End Date 10/22/24 Next Visit Focus/Plan Next Note Type Treatment Note Next Visit Plan Assess if IUD discomfort after this session. Review Bladder dairy and discussed fluid intake (AM/PM), times between voids, norms for voids /day and urination times, and nighttime voiding frequency; pt education in urge deference technique and bladder retraining if needed. Kegel on wedge without use of substitute muscles, deep breathing, core pressure management, and proper coordinated breathing with transfers and body mechanics. Ther Ex: PF/hip (L>R ER, L IR ) and trunk L rot strengthening, L hip (IR/ slight ER) & trunk L rot mobility. STM of abdomen (and urachus) & bladder mobility, POC: Pt education, Manual therapy, Therapeutic Exercises , Therapeutic Activities, Neuromuscular Reeducation, biofeedback, HEP.
--- NOTE | 2024-08-13 16:58 | PT.OTN ---
Current Diagnoses Stress incontinence (female) (male) (08/13/24) Physical Therapy Treatment Note PT-OP-A Visit Information Start: 07/20/24 18:11 Freq: Status: Active Protocol: Document 08/13/24 07:34 LRN (Rec: 08/13/24 08:15 LRN [id number]) Out-Patient Physical Therapy Visit Information Visit Information Visit Type Treatment Note Visit Start Time 07:34 Visit Stop Time 08:12 Visit Number 3 Evaluation Information Evaluation Date 07/30/24 Precautions Precautions 18 month post of vaginal , PT-OP-B Current Condition Start: 07/20/24 18:11 Freq: Status: Active Protocol: Document 07/30/24 07:32 LRN (Rec: 07/30/24 08:14 LRN [id number]) Current Condition History of Current Condition Onset Date 6 months ago Current Complaints Leaks with sneeze, cough, and exercise, and lift exercise. History of Current Condition Pt is 18 month post ( stopped 9 months ago), who initially had no urinary incontinence with jogging, sneezing, coughing). She had resumed close to her previous workout of 5x/week exercising in a gym (run or intense [employer] workout) when she returned to work. She began to notice a little leakage at a time, then 2 months ago was running and had lost complete urinary continence, only recognizing loss of urine when she felt it running down her leg. She states her birthing history was without difficulty with only small tearing, not requiring stitches. Pt is 1G1P, baby weighing 10#. Pt denies currently being . She is considering another child, but wanting to wait because she wants to get into nursing school. Records indicate IUD placed 6 wk pp, and she has occasional dyspareunia since of child. Prior Treatments and Tests None Treatment Goals Patient/Caregiver Goals Pt goal: - not leak with coughing, sneezing, lifting in gym. - wants to run without urinary leakage or loss of bladder control. - pt agreeable to being on a HEP. Prior Functional Status Baseline Function- Other Without leakage, worked out at [employer] for floor workouts , and light jog or run, then machine wgt lifting and stretching. 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 Therapy/Recovery IUD since 6 wks post-, Pt may begin process towards nursing school. PT-OP-C Subjective Start: 07/20/24 18:11 Freq: Status: Active Protocol: Document 08/13/24 07:34 LRN (Rec: 08/13/24 08:15 LRN [id number]) OP-PT Subjective Patient Comments Patient Comments States she will drop off her bladder diary because she forgot it at home. PT-OP-I Pelvic Floor Start: 07/20/24 18:11 Freq: Status: Active Protocol: Document 08/06/24 07:33 LRN (Rec: 08/06/24 08:19 LRN [id number]) Pelvic Floor Assessment SEMG (uV) Baseline 3.0 Quick Contraction 6.1 10 Second Contraction 5.8 Recruitment Pattern Good Relaxation Fair Holding Fair Stability of Hold Poor/Slow SEMG Stability of Rest Fair Comments Pelvic Floor Comments Positioning: Arms by sides, hands on lower abdomen, Legs on bolster. Quick Flicks: 10 reps strength (uV's): avg work 6.1, avg rest 3.3. 20 reps strength (uV's): avg work 6.3, avg rest 3.1. Long Holds: 10 reps strength (uV's): avg work 5,8, avg rest 2.9. 20 rep s strength (uV's): avg work , avg rest . RESTING: Takes 2 secs or more to get to resting tone. PT-OP-J Posture/Palpation/Skin Start: 07/20/24 18:11 Freq: Status: Active Protocol: Document 07/30/24 07:32 LRN (Rec: 07/30/24 08:14 LRN [id number]) Posture Evaluation Position Standing L-Spine Posture Increased Lordosis Shoulder Posture (L) Elevated Pelvis Posture Anteriorly Tilted Knee Posture (L) Genu Valgus,(R) Genu Valgus Ankle/Foot Posture (L) Pronated,(R) Pronated Comments Posture Comments Decreased T/S upper curve, L buttock curve is low. PT-OP-K Range of Motion Start: 07/20/24 18:11 Freq: Status: Active Protocol: Document 07/30/24 07:32 LRN (Rec: 07/30/24 08:14 LRN [id number]) Lumbar Spine Range of Motion Lumbar Spine Active Degrees Testing Position Standing Flexion 110 Extension 25 Rotation Left 20 Rotation Right 25 Lateral Flexion Left 20 Lateral Flexion Right 30 Hip Goniometric Range of Motion Hip Right Passive Testing Position Supine Internal Rotation 45 External Rotation 65 Left Passive Testing Position Supine Internal Rotation 35 External Rotation 60 PT-OP-M Strength Start: 07/20/24 18:11 Freq: Status: Active Protocol: Document 07/30/24 07:32 LRN (Rec: 07/30/24 08:14 LRN [id number]) Trunk Strength Trunk Manual Muscle Testing Core Stabilization Decreased rotational stability with strength 4+/5 Hip Strength Hip Manual Muscle Testing Right External Rotation 4+ Good+ Comments Strength is generally 5/5 except as indicated above. Left External Rotation 3 Fair Internal Rotation 4+ Good+ Comments Strength is generally 5/5 except as indicated above. PT-OP-Q Treatments Start: 07/20/24 18:11 Freq: Status: Active Protocol: Document 08/13/24 07:34 LRN (Rec: 08/13/24 08:15 LRN [id number]) Therapeutic Exercises Supine Exercises Deep Breathing Reps/Minutes 5' Comments Much phys & v cuing needed. Isolated Kegel Supine Exercise Name Training for isolating Kegel from substitute ms (legs on bolster) Equipment Used bolster Reps/Minutes 4' Long Hold PF strengthening Supine Exercise Name PF strengthening with 2D feedback. Equipment Used Bolster, V. electrode Reps/Minutes 10 SH/10 SR, 2 sets of 10 Comments Cuing for when to retighten to maintain a Kegel Quick PF strengthening Supine Exercise Name PF strengthening with 2D feedback. Equipment Used Bolster, V. electrode Reps/Minutes 2 SH/4 SR x 20 Comments Pt cued to get relaxation after contraction. Self-Care/Home Management Treatment Education Other Education Discussed & educated pt in URge deference technique. Activities Self-Care/Home Management Activities Issued handout for bladder retraining/urge deference technique. PT-OP-T Assessment and Plan Start: 07/20/24 18:11 Freq: Status: Active Protocol: Document 08/13/24 07:34 LRN (Rec: 08/13/24 08:15 LRN [id number]) Physical Therapy Assessment Goals Three Impairment Stress Urinary Leakage with cough, sneeze, lifting at gym Short Term Goal (STG) Pt will be able to perform a PF contraction in the absence of abdominal/gluteal muscles and hold for 10 secs. 08/13/24: Pt educated w/ training in Isolated Kegel. STG Duration 09/10/24 progressed 08/13/24 Prison Goal (LTG) Improve PF strength with pt able to coughing, sneezing, and lift in gym without leaking. LTG Duration 10/22/24 Two Impairment Pt has urinary incontinence with light jog (previously pp had no leakage) Short Term Goal (STG) Strengthen PF with pt able to run without urinary leakage or loss of bladder control for intermittent short light jogs between walking. STG Duration 09/10/24 Manager Privacy Goal (LTG) Improve PF strength with pt be able to confidently light jog 1 mile with less fear of urinary leakage for improved social engagement. LTG Duration 10/22/24 One Impairment Pt lacks an independent self care HEP. Short Term Goal (STG) Pt will be educated and able to demonstrate transfers to lessen core abdominal pressure . STG Duration 08/13/24 Prison Goal (LTG) Pt will be independent in a self care HEP for PF strengthening. (late entry) 07/30/24: HEP: Kegel ex's and discussed exercise of Quick Flicks, Long Holds and Aggravators. LTG Duration 10/22/24 progressed on 07/30 Assessment Summary Assessment Pt is a 28 yo female who is 18 months presenting with RICHARD due to PF weakness after returning to 5x/week of gym exercises (light running/ workouts) when she returned to work. She leaks mainly with light running and an urge and occasional with sneeze, cough, lifting of weights at the gym . She has decreased L hip & trunk L rot mobility and mild decrease in trunk & hip strength. Today, after training, pt was able to perform a proper deep breath and was better able to isolate a PF contraction from substitute ms. SHe had no IUD associated discomfort after last session. Physical Therapy Plan Frequency and Duration Frequency of Treatment 1x/Week Duration of treatment (weeks) 12 Plan of Care Start Date 07/30/24 Plan of Care End Date 10/22/24 Next Visit Focus/Plan Next Note Type Treatment Note Next Visit Plan Training of core pressure management, and proper coordinated breathing with transfers and body mechanics. Review Bladder dairy and discussed fluid intake (AM/PM) , times between voids, norms for voids/day and urination times, and nighttime voiding frequency; assess response to use of urge deference technique to avoid leakage. Pt educ/training in (review) Kegel on wedge without use of substitute muscles & deep breathing Ther Ex: PF/hip (L>R ER, L IR ) and trunk L rot strengthening, L hip (IR/ slight ER) & trunk L rot mobility. STM of abdomen (and urachus) & bladder mobility, POC: Pt education, Manual therapy, Therapeutic Exercises , Therapeutic Activities, Neuromuscular Reeducation, biofeedback, HEP.
--- NOTE | 2024-08-20 18:05 | PT.OTN ---
Current Diagnoses Stress incontinence (female) (male) (08/20/24) Physical Therapy Treatment Note PT-OP-A Visit Information Start: 07/20/24 18:11 Freq: Status: Active Protocol: Document 08/20/24 07:31 LRN (Rec: 08/20/24 08:17 LRN [id number]) Out-Patient Physical Therapy Visit Information Visit Information Visit Type Treatment Note Visit Start Time 07:31 Visit Stop Time 08:15 Visit Number 4 Evaluation Information Evaluation Date 07/30/24 Precautions Precautions 18 month post of vaginal , PT-OP-B Current Condition Start: 07/20/24 18:11 Freq: Status: Active Protocol: Document 07/30/24 07:32 LRN (Rec: 07/30/24 08:14 LRN [id number]) Current Condition History of Current Condition Onset Date 6 months ago Current Complaints Leaks with sneeze, cough, and exercise, and lift exercise. History of Current Condition Pt is 18 month post ( stopped 9 months ago), who initially had no urinary incontinence with jogging, sneezing, coughing). She had resumed close to her previous workout of 5x/week exercising in a gym (run or intense [employer] workout) when she returned to work. She began to notice a little leakage at a time, then 2 months ago was running and had lost complete urinary continence, only recognizing loss of urine when she felt it running down her leg. She states her birthing history was without difficulty with only small tearing, not requiring stitches. Pt is 1G1P, baby weighing 10#. Pt denies currently being . She is considering another child, but wanting to wait because she wants to get into nursing school. Records indicate IUD placed 6 wk pp, and she has occasional dyspareunia since of child. Prior Treatments and Tests None Treatment Goals Patient/Caregiver Goals Pt goal: - not leak with coughing, sneezing, lifting in gym. - wants to run without urinary leakage or loss of bladder control. - pt agreeable to being on a HEP. Prior Functional Status Baseline Function- Other Without leakage, worked out at [employer] for floor workouts , and light jog or run, then machine wgt lifting and stretching. 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 Therapy/Recovery IUD since 6 wks post-, Pt may begin process towards nursing school. PT-OP-C Subjective Start: 07/20/24 18:11 Freq: Status: Active Protocol: Document 08/20/24 07:31 LRN (Rec: 08/20/24 08:17 LRN [id number]) OP-PT Subjective Patient Comments Patient Comments Not , no nighttime voids. Deep breathing is relaxing. No leakage with urges. PT-OP-I Pelvic Floor Start: 07/20/24 18:11 Freq: Status: Active Protocol: Document 08/06/24 07:33 LRN (Rec: 08/06/24 08:19 LRN [id number]) Pelvic Floor Assessment SEMG (uV) Baseline 3.0 Quick Contraction 6.1 10 Second Contraction 5.8 Recruitment Pattern Good Relaxation Fair Holding Fair Stability of Hold Poor/Slow SEMG Stability of Rest Fair Comments Pelvic Floor Comments Positioning: Arms by sides, hands on lower abdomen, Legs on bolster. Quick Flicks: 10 reps strength (uV's): avg work 6.1, avg rest 3.3. 20 reps strength (uV's): avg work 6.3, avg rest 3.1. Long Holds: 10 reps strength (uV's): avg work 5,8, avg rest 2.9. 20 rep s strength (uV's): avg work , avg rest . RESTING: Takes 2 secs or more to get to resting tone. PT-OP-J Posture/Palpation/Skin Start: 07/20/24 18:11 Freq: Status: Active Protocol: Document 07/30/24 07:32 LRN (Rec: 07/30/24 08:14 LRN [id number]) Posture Evaluation Position Standing L-Spine Posture Increased Lordosis Shoulder Posture (L) Elevated Pelvis Posture Anteriorly Tilted Knee Posture (L) Genu Valgus,(R) Genu Valgus Ankle/Foot Posture (L) Pronated,(R) Pronated Comments Posture Comments Decreased T/S upper curve, L buttock curve is low. PT-OP-K Range of Motion Start: 07/20/24 18:11 Freq: Status: Active Protocol: Document 07/30/24 07:32 LRN (Rec: 07/30/24 08:14 LRN [id number]) Lumbar Spine Range of Motion Lumbar Spine Active Degrees Testing Position Standing Flexion 110 Extension 25 Rotation Left 20 Rotation Right 25 Lateral Flexion Left 20 Lateral Flexion Right 30 Hip Goniometric Range of Motion Hip Right Passive Testing Position Supine Internal Rotation 45 External Rotation 65 Left Passive Testing Position Supine Internal Rotation 35 External Rotation 60 PT-OP-M Strength Start: 07/20/24 18:11 Freq: Status: Active Protocol: Document 07/30/24 07:32 LRN (Rec: 07/30/24 08:14 LRN [id number]) Trunk Strength Trunk Manual Muscle Testing Core Stabilization Decreased rotational stability with strength 4+/5 Hip Strength Hip Manual Muscle Testing Right External Rotation 4+ Good+ Comments Strength is generally 5/5 except as indicated above. Left External Rotation 3 Fair Internal Rotation 4+ Good+ Comments Strength is generally 5/5 except as indicated above. PT-OP-Q Treatments Start: 07/20/24 18:11 Freq: Status: Active Protocol: Document 08/20/24 07:31 LRN (Rec: 08/20/24 08:17 LRN [id number]) Therapeutic Exercises Supine Exercises Kegel/Leno BKFO Equipment Used L2 TB/wedge Reps/Minutes 10 SH/10 SR x 10, hold thru 3 breaths Comments Cue to draw up and in slowly as do BKFO slowly Kegel/ball squeeze Supine Exercise Name Hips on wedge Equipment Used Ball/wedge Reps/Minutes 10 SH/10 SR x 10, hold thru 3 breaths Comments Cue to draw up and in slowly as sqeeze ball slowly Deep Breathing Reps/Minutes 10x Comments No cuing needed. Standing Exercises Posture education Standing Exercise Name Wall standing with corrections of lordosis w/TA tightening Reps/Minutes 3' Other Exercises Wag the TAil Side bilateral Reps/Minutes 3' Child's Pose Other Exercise Name With elbows flexed. Reps/Minutes 3' Comments cuing for getting LB stretch to work towards buttock to heels. Therapeutic Activity Therapeutic Activity Body mechanics Name Squatting, lifting, reaching or lifting overhead Reps/Minutes 9' Coordination of transfers w/breath/Kegel Name Stand<>sit<>supine. Reps/Minutes 8' Comments Extra time needed for pt education & training on core pressure management, and proper coordinated breathing with transfers and body mechanics. Self-Care/Home Management Treatment Education Other Education 7' to Review bladder diary for fluid intake, times between voids and voiding times (pt had no nighttime voiding). Discussed norms for previously mentioned areas. Activities Self-Care/Home Management Activities Issued & reviewed handouts of core pressure mgmt, body [facility] ADLs & basics, sit/stand correct posture, Issued L2 TBand. PT-OP-T Assessment and Plan Start: 07/20/24 18:11 Freq: Status: Active Protocol: Document 08/20/24 07:31 LRN (Rec: 08/20/24 08:17 LRN [id number]) Physical Therapy Assessment Goals Three Impairment Stress Urinary Leakage with cough, sneeze, lifting at gym Short Term Goal (STG) Pt will be able to perform a PF contraction in the absence of abdominal/gluteal muscles and hold for 10 secs. 08/13/24: Pt educated w/ training in Isolated Kegel. STG Duration 09/10/24 progressed 08/13/24 Coding Director Goal (LTG) Improve PF strength with pt able to coughing, sneezing, and lift in gym without leaking. LTG Duration 10/22/24 Two Impairment Pt has urinary incontinence with light jog (previously pp had no leakage) Short Term Goal (STG) Strengthen PF with pt able to run without urinary leakage or loss of bladder control for intermittent short light jogs between walking. STG Duration 09/10/24 Assisted Goal (LTG) Improve PF strength with pt be able to confidently light jog 1 mile with less fear of urinary leakage for improved social engagement. LTG Duration 10/22/24 One Impairment Pt lacks an independent self care HEP. Short Term Goal (STG) Pt will be educated and able to demonstrate transfers to lessen core abdominal pressure . 08/20/24: Training of core pressure management, and proper coordinated breathing with transfers and body mechanics. STG Duration (08/20/24: MET GOAL) Assisted Goal (LTG) Pt will be independent in a self care HEP for PF strengthening. (late entry) 07/30/24: HEP: Kegel ex's and discussed exercise of Quick Flicks, Long Holds and Aggravators. LTG Duration 10/22/24 progressed on 07/30 Assessment Summary Assessment Per bladder diary, pt fluid intake is mildly less than avg of 1/2 body wgt (60 oz h2O vs 1/2 body wgt of 90 oz), other factors WNL. Good Deep Breathing technique. Pt improving, as she is reporting no problems making it to the bathroom with urges and didn't need to use urge deference technique. Her main c/o is leaking with running and exercise, although pt reports going on a light jog once w/o leaking. Physical Therapy Plan Frequency and Duration Frequency of Treatment 1x/Week Duration of treatment (weeks) 12 Plan of Care Start Date 07/30/24 Plan of Care End Date 10/22/24 Next Visit Focus/Plan Next Note Type Treatment Note Next Visit Plan Next: Quick Assess for sacral balance need, Add HEP: L hip (IR/slight ER) & trunk L rot mobility, check for Kegel without use of substitute muscles (STG 3), and Ex's: Kegel/hip (L>R ER, L IR) and trunk L rot strengthening (coordinating with breath). Neuro re-ed for PF strengthening. Progress towards running and gym ex if PF strong (assess and PF mob to close vaginal opening) and core pressure is managed in 1-2 visits. If needed, STM of abdomen (and urachus) & bladder mobility. POC: Pt education, Manual therapy, Therapeutic Exercises , Therapeutic Activities, Neuromuscular Reeducation, biofeedback, HEP.
--- NOTE | 2024-08-27 07:49 | PT-OP ANOTE ---
Per phone, pt notified of today's missed appt.
--- NOTE | 2024-09-13 17:45 | PT.OTN ---
Current Diagnoses Stress incontinence (female) (male) (09/13/24) Physical Therapy Treatment Note PT-OP-A Visit Information Start: 07/20/24 18:11 Freq: Status: Active Protocol: Document 09/13/24 07:31 LRN (Rec: 09/13/24 08:21 LRN [id number]) Out-Patient Physical Therapy Visit Information Visit Information Visit Type Treatment Note Visit Start Time 07:31 Visit Stop Time 07:14 Visit Number 5 Evaluation Information Evaluation Date 07/30/24 Precautions Precautions 18 month post of vaginal , PT-OP-B Current Condition Start: 07/20/24 18:11 Freq: Status: Active Protocol: Document 07/30/24 07:32 LRN (Rec: 07/30/24 08:14 LRN [id number]) Current Condition History of Current Condition Onset Date 6 months ago Current Complaints Leaks with sneeze, cough, and exercise, and lift exercise. History of Current Condition Pt is 18 month post ( stopped 9 months ago), who initially had no urinary incontinence with jogging, sneezing, coughing). She had resumed close to her previous workout of 5x/week exercising in a gym (run or intense [employer] workout) when she returned to work. She began to notice a little leakage at a time, then 2 months ago was running and had lost complete urinary continence, only recognizing loss of urine when she felt it running down her leg. She states her birthing history was without difficulty with only small tearing, not requiring stitches. Pt is 1G1P, baby weighing 10#. Pt denies currently being . She is considering another child, but wanting to wait because she wants to get into nursing school. Records indicate IUD placed 6 wk pp, and she has occasional dyspareunia since of child. Prior Treatments and Tests None Treatment Goals Patient/Caregiver Goals Pt goal: - not leak with coughing, sneezing, lifting in gym. - wants to run without urinary leakage or loss of bladder control. - pt agreeable to being on a HEP. Prior Functional Status Baseline Function- Other Without leakage, worked out at [employer] for floor workouts , and light jog or run, then machine wgt lifting and stretching. 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 Therapy/Recovery IUD since 6 wks post-, Pt may begin process towards nursing school. PT-OP-C Subjective Start: 07/20/24 18:11 Freq: Status: Active Protocol: Document 09/13/24 07:31 LRN (Rec: 09/13/24 08:21 LRN [id number]) OP-PT Subjective Patient Comments Patient Comments Trying to do PF contractions with ADLS. PT-OP-I Pelvic Floor Start: 07/20/24 18:11 Freq: Status: Active Protocol: Document 08/06/24 07:33 LRN (Rec: 08/06/24 08:19 LRN [id number]) Pelvic Floor Assessment SEMG (uV) Baseline 3.0 Quick Contraction 6.1 10 Second Contraction 5.8 Recruitment Pattern Good Relaxation Fair Holding Fair Stability of Hold Poor/Slow SEMG Stability of Rest Fair Comments Pelvic Floor Comments Positioning: Arms by sides, hands on lower abdomen, Legs on bolster. Quick Flicks: 10 reps strength (uV's): avg work 6.1, avg rest 3.3. 20 reps strength (uV's): avg work 6.3, avg rest 3.1. Long Holds: 10 reps strength (uV's): avg work 5,8, avg rest 2.9. 20 rep s strength (uV's): avg work , avg rest . RESTING: Takes 2 secs or more to get to resting tone. PT-OP-J Posture/Palpation/Skin Start: 07/20/24 18:11 Freq: Status: Active Protocol: Document 09/13/24 07:31 LRN (Rec: 09/13/24 17:29 LRN [id number]) Palpation Assessment Location Abdomen Palpation Location Diastasis Rectus Palpation Details Above umbilicus 1 is 1 fingerwidth very shallow, Above umbilicus 2 is closed; Below umbilicus 1 is 1.5 fingerwidth, mild shallow, Below umbilicus 2 is closed. PT-OP-K Range of Motion Start: 07/20/24 18:11 Freq: Status: Active Protocol: Document 07/30/24 07:32 LRN (Rec: 07/30/24 08:14 LRN [id number]) Lumbar Spine Range of Motion Lumbar Spine Active Degrees Testing Position Standing Flexion 110 Extension 25 Rotation Left 20 Rotation Right 25 Lateral Flexion Left 20 Lateral Flexion Right 30 Hip Goniometric Range of Motion Hip Right Passive Testing Position Supine Internal Rotation 45 External Rotation 65 Left Passive Testing Position Supine Internal Rotation 35 External Rotation 60 PT-OP-M Strength Start: 07/20/24 18:11 Freq: Status: Active Protocol: Document 07/30/24 07:32 LRN (Rec: 07/30/24 08:14 LRN [id number]) Trunk Strength Trunk Manual Muscle Testing Core Stabilization Decreased rotational stability with strength 4+/5 Hip Strength Hip Manual Muscle Testing Right External Rotation 4+ Good+ Comments Strength is generally 5/5 except as indicated above. Left External Rotation 3 Fair Internal Rotation 4+ Good+ Comments Strength is generally 5/5 except as indicated above. PT-OP-Q Treatments Start: 07/20/24 18:11 Freq: Status: Active Protocol: Document 09/13/24 07:31 LRN (Rec: 09/13/24 08:21 LRN [id number]) Therapeutic Exercises Supine Exercises Deep Breathing Reps/Minutes 10x Comments No cuing needed. Isolated Kegel Supine Exercise Name Training for isolating Kegel from substitute ms (legs on bolster) Equipment Used bolster Reps/Minutes 4' Comments Substitutes with Gluts before TA Prone Exercises Kegels/hip IR Prone Exercise Name Quick & Long hold Kegels Reps/Minutes 1-2 SH/2 SR; 10 SH/10 SR Comments Hamstrings tight. Manual Therapy Treatment Soft Tissue Mobilization Low Back Body Location Sacral Rebalancing Mobilization Type Sustained Pressure Intensity/Depth Moderate Body Position Prone, supine Comments Prone: Correcting decreased mobility of: R Sacral sulcus for PA & infer glide. R sacral base inferior mob, Sacral sheer to L, R KALIN PA mob, R Ischial Tub PA mob. Supine on pillows: L Pubic Rami super glide. Self-Care/Home Management Treatment Education Other Education Quick review of ADLs w/Kegel and using breath for core pressure managment. Activities Self-Care/Home Management Activities I/S pt in Hamstring stretch long sit & stand, with straight back. I/S pt to equal move LE's, equal stand and equal sit weightbearing. PT-OP-T Assessment and Plan Start: 07/20/24 18:11 Freq: Status: Active Protocol: Document 09/13/24 07:31 LRN (Rec: 09/13/24 08:21 LRN [id number]) Physical Therapy Assessment Goals Three Impairment Stress Urinary Leakage with cough, sneeze, lifting at gym Short Term Goal (STG) Pt will be able to perform a PF contraction in the absence of abdominal/gluteal muscles and hold for 10 secs. 08/13/24: Pt educated w/ training in Isolated Kegel. STG Duration 09/10/24 progressed 08/13/24 Halfway Goal (LTG) Improve PF strength with pt able to coughing, sneezing, and lift in gym without leaking. LTG Duration 10/22/24 Two Impairment Pt has urinary incontinence with light jog (previously pp had no leakage) Short Term Goal (STG) Strengthen PF with pt able to run without urinary leakage or loss of bladder control for intermittent short light jogs between walking. STG Duration 09/10/24 Safety Admin Assistant Goal (LTG) Improve PF strength with pt be able to confidently light jog 1 mile with less fear of urinary leakage for improved social engagement. LTG Duration 10/22/24 One Impairment Pt lacks an independent self care HEP. Short Term Goal (STG) Pt will be educated and able to demonstrate transfers to lessen core abdominal pressure . 08/20/24: Training of core pressure management, and proper coordinated breathing with transfers and body mechanics. STG Duration (08/20/24: MET GOAL) Halfway Goal (LTG) Pt will be independent in a self care HEP for PF strengthening. (late entry) 07/30/24: HEP: Kegel ex's and discussed exercise of Quick Flicks, Long Holds and Aggravators. LTG Duration 10/22/24 progressed on 07/30 Assessment Summary Assessment 28 yo female 19 mo post (PP) with RICHARD due to PF weakness after returning to 5x /week of gym exercises (light running/workouts). She leaked mainly with light running and an urge and occasionally with sneeze, cough, lifting of weights at the gym. She has decreased L hip & trunk L rot mobility and mild decrease in trunk & hip strength. Today she reports no change since last session. DR insignificant above umibilicus , below umbilicus 1 is 1.5 mild shallow and 2 closed. She demonstrates ability to deep breath well. GLuteal ms assist > TA asst when PF ms fatigues. Pt needs hip stretches and TA rot strengthening for DR sisi around umbilicus. Physical Therapy Plan Frequency and Duration Frequency of Treatment 1x/Week Duration of treatment (weeks) 12 Plan of Care Start Date 07/30/24 Plan of Care End Date 10/22/24 Next Visit Focus/Plan Next Note Type Treatment Note Next Visit Plan Next: Assess for sacral balancing and complete with 6pt balancing. Add HEP: Hip stretches: L hip (IR/slight ER) & trunk L rot stretch. Check for Kegel without use of substitute muscles (STG 3), and Ex's: Kegel/hip (L>R ER, L IR) and trunk L rot strengthening (coordinating with breath). Neuro re-ed (H&M assess) for PF strengthening. Progress towards running and gym ex if PF strong (assess and PF mob to close vaginal opening) and core pressure is managed in 1-2 visits. If needed, STM of abdomen (and urachus) & bladder mobility. POC: Pt education, Manual therapy, Therapeutic Exercises , Therapeutic Activities, Neuromuscular Reeducation, biofeedback, HEP.
--- NOTE | 2024-10-14 14:06 | PT-OP ANOTE ---
VM left letting pt know she has no more appointments scheduled and that she will need to be seen before 10/12/24 or she will be discharged and whe will then have to obtain a new referral to come back as a new patient for rehabilitation.
--- NOTE | 2025-02-01 18:21 | PT.OPDS ---
Current Diagnoses Stress incontinence (female) (male) (09/13/24) Visit Care Team Role Provider Type Thompson Kimball DO Family Provider Physician Primary Care Provider Specialty: Family Practice Address: [address] [place] [address], [id number] Email: Starla Marques DO Attending Provider Physician Referring Provider Specialty: SUPERVISOR [employer] SILVERING Address: [address] [place] [address], [address], [place], [address] Email: [email or web address] Visit Number Visit Number 5 Discharge Summary PT-OP-B Current Condition Start: 07/20/24 18:11 Freq: Status: Active Protocol: Document 07/30/24 07:32 LRN (Rec: 07/30/24 08:14 LRN [id number]) Current Condition History of Current Condition Onset Date 6 months ago Current Complaints Leaks with sneeze, cough, and exercise, and lift exercise. History of Current Condition Pt is 18 month post ( stopped 9 months ago), who initially had no urinary incontinence with jogging, sneezing, coughing). She had resumed close to her previous workout of 5x/week exercising in a gym (run or intense stairmaster workout) when she returned to work. She began to notice a little leakage at a time, then 2 months ago was running and had lost complete urinary continence, only recognizing loss of urine when she felt it running down her leg. She states her birthing history was without difficulty with only small tearing, not requiring stitches. Pt is 1G1P, baby weighing 10#. Pt denies currently being . She is considering another child, but wanting to wait because she wants to get into nursing school. Records indicate IUD placed 6 wk pp, and she has occasional dyspareunia since of child. Prior Treatments and Tests None Treatment Goals Patient/Caregiver Goals Pt goal: - not leak with coughing, sneezing, lifting in gym. - wants to run without urinary leakage or loss of bladder control. - pt agreeable to being on a HEP. Prior Functional Status Baseline Function- Other Without leakage, worked out at [employer] for floor workouts , and light jog or run, then machine wgt lifting and stretching. 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 Therapy/Recovery IUD since 6 wks post-, Pt may begin process towards nursing school. PT-OP-C Subjective Start: 07/20/24 18:11 Freq: Status: Active Protocol: Document 09/13/24 07:31 LRN (Rec: 09/13/24 08:21 LRN [id number]) OP-PT Subjective Patient Comments Patient Comments Trying to do PF contractions with ADLS. PT-OP-I Pelvic Floor Start: 07/20/24 18:11 Freq: Status: Active Protocol: Document 08/06/24 07:33 LRN (Rec: 08/06/24 08:19 LRN [id number]) Pelvic Floor Assessment SEMG (uV) Baseline 3.0 Quick Contraction 6.1 10 Second Contraction 5.8 Recruitment Pattern Good Relaxation Fair Holding Fair Stability of Hold Poor/Slow SEMG Stability of Rest Fair Comments Pelvic Floor Comments Positioning: Arms by sides, hands on lower abdomen, Legs on bolster. Quick Flicks: 10 reps strength (uV's): avg work 6.1, avg rest 3.3. 20 reps strength (uV's): avg work 6.3, avg rest 3.1. Long Holds: 10 reps strength (uV's): avg work 5,8, avg rest 2.9. 20 rep s strength (uV's): avg work , avg rest . RESTING: Takes 2 secs or more to get to resting tone. PT-OP-J Posture/Palpation/Skin Start: 07/20/24 18:11 Freq: Status: Active Protocol: Document 09/13/24 07:31 LRN (Rec: 09/13/24 17:29 LRN [id number]) Palpation Assessment Location Abdomen Palpation Location Diastasis Rectus Palpation Details Above umbilicus 1 is 1 fingerwidth very shallow, Above umbilicus 2 is closed; Below umbilicus 1 is 1.5 fingerwidth, mild shallow, Below umbilicus 2 is closed. PT-OP-K Range of Motion Start: 07/20/24 18:11 Freq: Status: Active Protocol: Document 07/30/24 07:32 LRN (Rec: 07/30/24 08:14 LRN [id number]) Lumbar Spine Range of Motion Lumbar Spine Active Degrees Testing Position Standing Flexion 110 Extension 25 Rotation Left 20 Rotation Right 25 Lateral Flexion Left 20 Lateral Flexion Right 30 Hip Goniometric Range of Motion Hip Right Passive Testing Position Supine Internal Rotation 45 External Rotation 65 Left Passive Testing Position Supine Internal Rotation 35 External Rotation 60 PT-OP-M Strength Start: 07/20/24 18:11 Freq: Status: Active Protocol: Document 07/30/24 07:32 LRN (Rec: 07/30/24 08:14 LRN [id number]) Trunk Strength Trunk Manual Muscle Testing Core Stabilization Decreased rotational stability with strength 4+/5 Hip Strength Hip Manual Muscle Testing Right External Rotation 4+ Good+ Comments Strength is generally 5/5 except as indicated above. Left External Rotation 3 Fair Internal Rotation 4+ Good+ Comments Strength is generally 5/5 except as indicated above. PT-OP-T Assessment and Plan Start: 07/20/24 18:11 Freq: Status: Active Protocol: Document 02/01/25 18:14 LRN (Rec: 02/01/25 19:21 LRN Laptop) Physical Therapy Assessment Goals Three Impairment Stress Urinary Leakage with cough, sneeze, lifting at gym Short Term Goal (STG) Pt will be able to perform a PF contraction in the absence of abdominal/gluteal muscles and hold for 10 secs. 08/13/24: Pt educated w/ training in Isolated [employer]. STG Duration 09/10/24 progressed 08/13/24 [facility]ci Goal (LTG) Improve PF strength with pt able to coughing, sneezing, and lift in gym without leaking. LTG Duration 10/22/24 Two Impairment Pt has urinary incontinence with light jog (previously pp had no leakage) Short Term Goal (STG) Strengthen PF with pt able to run without urinary leakage or loss of bladder control for intermittent short light jogs between walking. STG Duration 09/10/24 [facility] Goal (LTG) Improve PF strength with pt be able to confidently light jog 1 mile with less fear of urinary leakage for improved social engagement. LTG Duration 10/22/24 One Impairment Pt lacks an independent self care HEP. Short Term Goal (STG) Pt will be educated and able to demonstrate transfers to lessen core abdominal pressure . 08/20/24: Training of core pressure management, and proper coordinated breathing with transfers and body mechanics. STG Duration (08/20/24: MET GOAL) Director Web Goal (LTG) Pt will be independent in a self care HEP for PF strengthening. (late entry) 07/30/24: HEP: [employer] ex's and discussed exercise of Quick Flicks, Long Holds and Aggravators. LTG Duration 10/22/24 progressed on 07/30 Assessment Summary Assessment 28 yo female post (PP) with RICHARD due to PF weakness after returning to 5x/week of gym exercises (light running/ workouts). leaked mainly with light running and an urge and occasionally with sneeze, cough, lifting of weights at the gym. She also presented with decreased trunk and hip mobility and strength. The pt was seen for 4 treatment visits and did not show for her last appt scheduled. Pt was last seen 09/13/24. Per plan of care on ; therefore the pt is being discharged from physical therapy due to lack of attendance. She would need a new referral to return to physical therapy. Pt goals were not met as pt did not complete her PT program. Physical Therapy Plan Discharge Physical Therapy Discharge Reasons No Longer Attending PT Discharge Comments Thank you for your referral.
== END 2025-02-02 13:26 | disposition home or self-care (01) ==
LOC: PHYS 07:30
PROVIDERS: Family Provider Family Medicine; PCP Family Medicine; Referring Provider Student in an Organized Health Care Education/Training Program; Visit Provider Student in an Organized Health Care Education/Training Program
DX: N39.3 Stress incontinence (female) (male) (principal)
CPT/HCPCS: 97110; 97140; 97162; 97530; 97535

== ENCOUNTER → 2024-12-23 08:23 | Outpatient (CLI) | payer OTHER, SELFPAY ==
--- NOTE | 2024-12-23 08:24 | DI.US.S_ITS ---
PROCEDURE: US PELVIC COMPLETE INDICATIONS: Pain and spotting with IUD TECHNIQUE: Real-time scanning was performed of the pelvic organs, with image documentation. Additional endovaginal scanning was necessary due to incomplete visualization of the adnexal and endometrial structures by transabdominal scanning. COMPARISON: None. FINDINGS: Uterus: Uterus is anteverted and normal in size at 8.3 x 5.5 x 3.5 cm. The myometrium is homogeneous without dominant mass. A T-shaped IUD is seated appropriately in the fundal endometrium. Echogenic string is noted in the proximal cervix. The endometrium measures three mm combined thickness. Trace endometrial simple fluid present. Normal myometrial vascularity. Ovaries: The right ovary measures 3.7 x 2.2 x 2.6 cm, with a calculated ovarian volume of 11.1 cc. The left ovary measures 3.3 x 2.7 x 2.0 cm, with a calculated ovarian volume of 9.3 cc. The ovaries have a normal sonographic appearance. Several small follicles. Dominant left ovarian follicle measuring 1.9 cm. No adnexal masses are seen. Other: No pathologic free abdominal or pelvic fluid. IMPRESSION: IUD in satisfactory position within the uterus. Normal ovaries. We strive to produce accurate, complete, and clear reports of imaging services. To assist us in improving patient care, this report was composed using standard report templates and voice recognition software. Therefore, it may contain abnormal punctuation, insertions and/or omissions. Occasional wrong-word or sound-alike substitutions may occur. Though we review the report and make efforts to correct it, we do recommend that the report be read carefully in proper context to recognize any text inaccuracies. Dictated by: Edel Lou M.D. on 12/23/2024 at 12:48 Approved by: Edel Lou M.D. on 12/23/2024 at 13:24
== END ==
PROVIDERS: Family Provider Family Medicine; PCP Family Medicine; Referring Provider Student in an Organized Health Care Education/Training Program; Visit Provider Student in an Organized Health Care Education/Training Program
DX: N93.0 Postcoital and contact bleeding (principal); Z97.5 Presence of (intrauterine) contraceptive device
CPT/HCPCS: 76830; 76856